=== PATIENT | female | born 1960 | race Asian ===

== ENCOUNTER 2019-10-05 21:29 | Emergency (ER) | payer MEDICAID ==
[~2019-10-05] VITALS: Ht 162.6 cm; Wt 65.8 kg
[2019-10-05 21:45] VITALS: BP_SYST 144
[2019-10-05] MEDS ORDERED: ACETAMINOPHEN WITH CODEINE 12.5 ML UDC PO ONE (22:30)
[2019-10-05] MEDS ORDERED: KETOROLAC TROMETHAMINE 30 MG VIAL IM ONE (23:45)
[2019-10-06 00:42] VITALS: BP_SYST 136
== END 2019-10-06 00:42 | disposition home or self-care (01) ==
LOC: SED 21:29
DX: J20.9 Acute bronchitis, unspecified (principal); R50.9 Fever, unspecified
CPT/HCPCS: 71045; 86710; 96372; 99284; J1885; 36415

== ENCOUNTER 2020-10-09 14:51 | Emergency (ER) | payer MEDICAID, SELFPAY ==
[~2020-10-09] VITALS: Ht 165.1 cm; Wt 65.8 kg
--- NOTE | 2020-10-09 15:00 | NUR ---
Patient to ER bed 4 to gown for evaluation. Side rails up. Report given to Hannah HERNANDEZ.
[2020-10-09 15:01] VITALS: BP_SYST 158
--- NOTE | 2020-10-09 15:04 | NUR ---
ER at bedside examining patient.
--- NOTE | 2020-10-09 15:05 | NUR ---
PT BIB FOR SUBSTERNAL CHEST PAIN STARTING 2 NIGHTS AGO RADIATES TO RIGHT SIDE, TO JAW AND UP TO A HEADACHE. PT REPORTS CURRENT PAIN LEVEL 4-5/10. HX OF HTN, HAYFEVER RELEATED RESPIRATORY PROBLEMS. NO CURRENT SOB. PT IS AAOX4, V/S STABLE
--- NOTE | 2020-10-09 15:10 | NUR ---
PORTABLE X-RAY AT THE BEDSIDE
--- NOTE | 2020-10-09 15:15 | NUR ---
# 20 gauge angiocath placed to L WRIST. Use of asceptic technique. Opsite placed over site. Blood return noted. Blood for lab drawn from site. Flushed with 10 cc of normal saline. No evidence of infiltration noted. Patient tolerated well.
[2020-10-09 15:55] LABS: BASOPHILS # (AUTO) 0.1 K/uL (0.0-0.2); BASOPHILS % (AUTO) 0.8 % (0.0-2.0); EOSINOPHILS # (AUTO) 0.5 K/uL (0.0-0.4); EOSINOPHILS % (AUTO) 6.7 % (0.0-4.0); HEMATOCRIT 41.4 % (36-48); HEMOGLOBIN 13.7 g/dL (12.0-16.0); LYMPHOCYTES # (AUTO) 2.5 K/uL (1.0-5.5); LYMPHOCYTES % (AUTO) 32.7 % (20.5-51.5); MEAN CORPUSCULAR HEMOGLOBIN 29 pg (27-31); MEAN CORPUSCULAR HGB CONC 33 % (32-36); MEAN CORPUSCULAR VOLUME 88 fL (79.0-98.0); MONOCYTES # (AUTO) 0.7 K/uL (0.0-1.0); MONOCYTES % (AUTO) 8.9 % (1.7-9.3); NEUTROPHILS # (AUTO) 3.8 K/uL (1.8-7.7); NEUTROPHILS % (AUTO) 50.9 % (40.0-70.0); PLATELET COUNT (AUTO) 289 K/uL (130-430); RED BLOOD CELL COUNT(AUTO) 4.71 MIL/uL (4.2-6.2); RED CELL DISTRIBUTION WIDTH 12.1 % (9.0-15.0); WHITE BLOOD COUNT (AUTO) 7.5 K/uL (4.8-10.8)
[2020-10-09 16:05] LABS: INR 1.1 (0.8-1.2); PROTHROMBIN TIME 11.5 SECS (9.5-12.5)
[2020-10-09 16:25] LABS: CALCIUM 9.6 mg/dL (8.4-11.0)
[2020-10-09 16:26] LABS: CREATININE 0.53 mg/dL (0.55-1.30); TOTAL BILIRUBIN 0.4 mg/dL (0.0-1.0)
--- NOTE | 2020-10-09 16:43 | NUR ---
repeat EKG done and given to
[2020-10-09] MEDS: ASPIRIN 325 MG TABLET PO ONE (16:52)
--- NOTE | 2020-10-09 17:02 | NUR ---
PT ABLE TO VOID, SPECIMEN SENT TO LAB
[2020-10-09] MEDS ORDERED: RITU10VI IV (17:05)
[2020-10-09] MEDS ORDERED: LOSA50TA3 PO (17:05)
[2020-10-09] MEDS ORDERED: [UNRECOGNIZED DRUG - OTHER] INH (17:05)
[2020-10-09] MEDS ORDERED: ALBU1.257 IH (17:05)
[2020-10-09] MEDS ORDERED: FLUT16SP16 NS (17:05)
--- NOTE | 2020-10-09 17:07 | NUR ---
(KRYSTAL) PHONE NUMBER
--- NOTE | 2020-10-09 17:07 | NUR ---
Medication reconciliation completed with information provided by pt. Any prior medication reconciliation on file was reviewed and corrected.
--- NOTE | 2020-10-09 18:06 | NUR ---
PT RESTING IN BED, NO S/SX OF DISTRESS, V/S STABLE
--- NOTE | 2020-10-09 18:40 | NUR ---
GÓMEZ DECEMBER, LATHE WINDER AT [facility]. NO BEDS AVAILABLE AT THIS TIME FOR TRANSFER.
--- NOTE | 2020-10-09 19:14 | NUR ---
REPORT GIVEN TO MARY BALL FOR CONTINUING CARE
--- NOTE | 2020-10-09 20:04 | NUR ---
Spoke with patient and her family () about treatment plan and transfer to [facility]/
--- NOTE | 2020-10-09 20:31 | NUR ---
Patient resting quietly. No acute distress noted.
[2020-10-09 20:47] VITALS: BP_SYST 114
--- NOTE | 2020-10-09 20:47 | NUR ---
Patient does not wish to proceed with medical care recommended by Dr. Pena. Patient given information related to possible complications, up to and including , which could occur as a result of leaving hospital at this time. Patient verbalizes understanding of risks involved leaving against medical advice. Patient has signed AMA form.
== END 2020-10-09 20:47 | disposition left against medical advice (07) ==
LOC: SED 14:51
DX: R07.2 Precordial pain (principal); I10 Essential (primary) hypertension; Z79.899 Other long term (current) drug therapy; Z20.822 Contact with and (suspected) exposure to COVID-19
CPT/HCPCS: 36415; 71045; 80053; 84484; 84703; 85025; 85610-TC; 85730-TC; 93005; 99285

== ENCOUNTER 2022-07-23 13:54 | Emergency (ER) | payer MEDICAID ==
[~2022-07-23] VITALS: Ht 165.1 cm; Wt 57.6 kg
[~2022-07-23 13:54] MED LIST: ALBU1.257 IH; FLUT16SP16 NS; LOSA50TA3 PO; RITU10VI IV; [UNRECOGNIZED DRUG - OTHER] INH
[2022-07-23 14:03] VITALS: BP_SYST 123
--- NOTE | 2022-07-23 14:05 | NUR ---
Patient triaged and placed in waiting room. VSS and patient appears in no acute distress at this time. Accompanied by , awaiting available bed, and MD notified of need for MSE.
--- NOTE | 2022-07-23 14:30 | NUR ---
ER DR. ORTEGA EXAMINING PT IN TRIAGE
[2022-07-23] MEDS ORDERED: DEC4 PO (15:14)
[2022-07-23] MEDS ORDERED: QUER500C PO (15:14)
[2022-07-23] MEDS ORDERED: AZIT500T3 PO (15:14)
[2022-07-23] MEDS ORDERED: ZINC100T2 PO (15:14)
[2022-07-23 15:25] VITALS: BP_SYST 123
--- NOTE | 2022-07-23 15:25 | NUR ---
Patient given written and verbal discharge instructions and verbalizes understanding. ER MD discussed with patient the results and treatment provided. Patient in stable condition. ID arm band removed. Rx of ZITHROMAX AND DECADRON given. Patient educated on pain management and to follow up with PMD. Pain Scale 0/10. Opportunity for questions provided and answered. Medication side effect fact sheet provided.
== END 2022-07-23 15:25 | disposition home or self-care (01) ==
LOC: SED 13:54
DX: U07.1 COVID-19 (principal); I10 Essential (primary) hypertension; R05.9 Cough, unspecified; R50.9 Fever, unspecified; R09.81 Nasal congestion; Z79.899 Other long term (current) drug therapy
CPT/HCPCS: 36415; 71045; 99284